=== PATIENT | male | born 2000 ===

== ENCOUNTER 2021-05-22 17:14 | Emergency (ER) | payer MEDICAID ==
[~2021-05-22] VITALS: Ht 177.8 cm; Wt 67.0 kg
[2021-05-22 17:48] VITALS: BP 124/74
== END 2021-05-23 03:36 | disposition home or self-care (01) ==
LOC: ED 23:30
DX: S06.0X0A Concussion without loss of consciousness, initial encounter (principal); Y08.89XA Assault by other specified means, initial encounter; Y93.89 Activity, other specified; Y92.009 Unspecified place in unspecified non-institutional (private) residence as the place of occurrence of the external cause; Y99.8 Other external cause status
CPT/HCPCS: 99281